=== PATIENT | female | born 1995 | race African-American/Black ===

== ENCOUNTER 2018-06-07 05:50 | Day surgery (SDC) | payer OTHER ==
[2018-06-04 12:28] VITALS: BMI 23.6
[2018-06-07] MEDS ORDERED: CEFAZOLIN/Water 2 GM/20 ML SYRINGE ONE (06:11)
[2018-06-07 06:34] LABS: BHCG - Serum Negative (NEGATIVE); Pregs Control Background? CLEAR/WHITE (CLR/WHITE); Pregs Control Bar Appear? YES (CONTROL BAR)
[2018-06-07 06:37] LABS: #Basophils 0.1 thou/uL (0.0-0.2); #Eosinphils 0.1 thou/uL (0.0-0.7); #Lymphocytes 3.1 thou/uL (1.20-3.40); #Monocytes 0.6 thou/uL (0.11-0.59); #Neutrophils 2.6 thou/uL (1.40-6.50); %Basophils 0.9 % (0.0-1.0); %Eosinophils 1.1 % (0.0-10.0); %Lymphocytes 47.6 % (21.0-51.0); %Neutrophils 41.3 % (42.0-75.0); Mean Corpuscular HGB CONC 34.4 g/dL (32.0-36.0); Mean Corpuscular Hemoglobin 31.5 pg (27.0-31.0); Mean Corpuscular Volume 91.3 fL (78.0-98.0); Platelet Count 305 thou/uL (130-400); Red Blood Cell (RBC) Count 3.83 mill/uL (4.20-5.40); White Blood Cell (WBC) Count 6.4 thou/uL (4.8-10.8)
[2018-06-07 06:42] LABS: ALT (SGPT) 8 U/L (8-55); AST (SGOT) 14 U/L (5-34); Albumin 4.1 g/dL (3.5-5.0); Alkaline Phosphatase 50 U/L (40-150); Anion Gap 11 mmol/L (10-20); BUN (Urea Nitrogen) 13 mg/dL (7.0-18.7); Bilirubin, Total 0.3 mg/dL (0.2-1.2); Calc. Creatinine Clearance 119 mL/min (70-130); Calcium 9.2 mg/dL (7.8-10.44); Carbon Dioxide 27 mmol/L (22-29); Chloride 107 mmol/L (98-107); Estimated GFR-MDRD Greater than 90; Globulin 2.6 g/dL (2.4-3.5); Glucose 100 mg/dL (70-105); Potassium 3.5 mmol/L (3.5-5.1); Protein, Total 6.7 g/dL (6.0-8.3); Sodium 141 mmol/L (136-145)
[2018-06-07] MEDS ORDERED: Lidocaine 2% 10 ML INJ ONE (06:44)
[2018-06-07] MEDS ORDERED: Bupivacaine HCl 0.5%/Epinephrine 1:200,000/PF 30 ml Vial ONE ×2 (06:44→07:46)
[2018-06-07] MEDS ORDERED: Midazolam HCl 2 mg/2 ml Vial ONE (07:07)
[2018-06-07] MEDS ORDERED: Fentanyl 100 MCG/2 ML VIAL ONE ×2 (07:11→09:01)
--- NOTE | 2018-06-07 08:28 | OP ---
PREOPERATIVE DIAGNOSIS: Bilateral hidradenitis suppurativa of both of the axilla. SURGEON: Lex Mccormick M.D. PROCEDURE PERFORMED: Wide debridement, bilateral axillae. INDICATIONS: This is a 22-year-old female, who has recurrent hidradenitis with abscess formation in both axillae, not responding to antibiotic therapy. FINDINGS: A 10 x 5 cm excision of skin and subcutaneous on the right. A 12 x 7 cm excision on the l eft. PROCEDURE: After informed consent was obtained, the patient was taken to the operating room and give n general endotracheal anesthesia. She was placed in the supine position. Both axillae were prepped and draped in the usual fashion. Started on the right, as they appeared less inflamed. An elliptic al incision was performed to excise the axillary skin and subcutaneous. Did encounter an abscess, wh ich was cultured. This was excised down to the muscle, measured at 10 x 5 cm. Hemostasis achieved w ith electrocautery. Wound irrigated. Saline gauze was then applied. Then, on the left, an elliptic al incision was performed to excise multiple sinus tracts and abscesses. Again, cultures were obtain ed as we got into some purulent fluid and then this was excised down to the muscle including skin and subcutaneous measured at 12 x 7 cm. Hemostasis achieved with electrocautery. Wound irrigated. Crystal or to the excision, I did inject 30 mL of Marcaine in both sides. The wounds were dressed damp to dr matthews with Betadine gauze. Sterile bandage applied. The patient tolerated the procedure well and was tr ansferred to recovery in good condition. Sponge and needle count verified correct x2.
[2018-06-07] MEDS ORDERED: Promethazine HCl 25 MG/ML VIAL ONE (09:29)
[2018-06-07] MEDS ORDERED: HYDROcodone/Acetaminophen 10/325 mg Tablet ONE (09:57)
[2018-06-07] MEDS ORDERED: Dexamethasone 20 MG/5 ML VIAL ONE (12:16)
[2018-06-07] MEDS ORDERED: PROPOFOL 200 MG/20 ML VIAL ONE (12:16)
[2018-06-07] MEDS ORDERED: Ketorolac Tromethamine 30 MG/ML VIAL ONE (12:16)
[2018-06-07] MEDS ORDERED: Ondansetron HCl/PF 4 MG/2 ML Vial ONE (12:16)
[2018-06-07] MEDS ORDERED: Lidocaine 1% PF 5 ML VIAL ONE ×2 (12:16)
== END 2018-06-07 10:10 | disposition home or self-care (01) ==
LOC: SDC 05:50
PROVIDERS: ATTEND Surgery
PROC: 0JBF0ZZ Excision of Left Upper Arm Subcutaneous Tissue and Fascia, Open Approach (ICD-10-PCS; principal; 2018-06-07)
PROC: 0JBD0ZZ Excision of Right Upper Arm Subcutaneous Tissue and Fascia, Open Approach (ICD-10-PCS; principal; 2018-06-07)
DX: L73.2 Hidradenitis suppurativa (principal); Z79.899 Other long term (current) drug therapy
CPT/HCPCS: 36415; 80053; 84703; 85025; 87070; 87205; 88305; 96374; 96375; J0670; J1100; J1885; J2001; J2250; J2405; J2550; J2704; J3010